=== PATIENT | female | born 1970 | race African-American/Black ===

== ENCOUNTER 2018-03-23 19:58 | Emergency (ER) | payer OTHER, SELFPAY ==
[2018-03-23] MEDS ORDERED: Lidocaine 1% w/Epinephrine 1:100K 20 ML VIAL ONE (21:39)
--- NOTE | 2018-03-23 22:17 | RAD ---
RIGHT TIBIA AND FIBULA TWO VIEW 03/23/18 HISTORY: Trauma. COMPARISON: None. FINDINGS: No acute displaced fracture or malalignment. No radiopaque foreign object is appreciated. IMPRESSION: No acute fracture or malalignment. POS: HOME
[2018-03-23] MEDS ORDERED: Sulfameth/Trimethoprim DS 800-160mg TAB ONE (22:38)
== END 2018-03-23 22:44 | disposition home or self-care (01) ==
LOC: ERS 19:58
DX: S81.811A Laceration without foreign body, right lower leg, initial encounter (principal); W25.XXXA Contact with sharp glass, initial encounter
CPT/HCPCS: J2001

== ENCOUNTER 2019-01-16 11:32 | Emergency (ER) | payer SELFPAY | END 2019-01-16 12:16 | disposition home or self-care (01) | LOC: ERS 11:32 | DX: B37.2 Candidiasis of skin and nail (principal) | CPT/HCPCS: 99282 ==

== ENCOUNTER 2019-01-29 10:57 | Emergency (ER) | payer SELFPAY ==
[2019-01-29] MEDS ORDERED: diphenhydrAMINE 25 MG CAP ONE (12:04)
== END 2019-01-29 12:06 | disposition home or self-care (01) ==
LOC: ERS 10:57
DX: T63.481A Toxic effect of venom of other arthropod, accidental (unintentional), initial encounter (principal); F32.9 Major depressive disorder, single episode, unspecified
CPT/HCPCS: 99282; Q0163

== ENCOUNTER 2019-07-31 15:27 | Emergency (ER) | payer SELFPAY ==
[2019-07-31 16:10] LABS: Bilirubin Negative (Negative); Blood, Urine 2+ (Negative); Clarity Clear (Clear); Glucose, Urine (Dipstick) Normal (Negative); Leukocyte 500 Leu/uL (Negative); Nitrite Negative (Negative); Protein, Urine (Dipstick) 30 mg/dL (Neg-Trace); RBC/HPF 0-3 HPF (0-3); Urobilinogen Normal mg/dL (Less than 2)
[2019-07-31 16:11] LABS: Pregnancy Test - Urine (BHCG) Negative (Negative); Pregu Control Background? CLEAR/WHITE (CLR/WHITE); Pregu Control Bar Appear? YES (CONTROL BAR); Specific Gravity 1.027 (1.002-1.036)
[2019-07-31 16:17] LABS: Bacteria/HPF 1+ HPF (None Seen)
[2019-07-31 16:19] LABS: Mucous/LPF 1+ LPF (<2+)
[2019-08-02 22:36] LABS: Chlamydia by PCR Not Detected (NotDetected); GC by PCR Not Detected (NotDetected)
== END 2019-07-31 18:36 | disposition home or self-care (01) ==
LOC: ERS 15:27
DX: N76.0 Acute vaginitis (principal); B37.3 Candidiasis of vulva and vagina; F32.9 Major depressive disorder, single episode, unspecified
CPT/HCPCS: 81003; 81015; 81025; 87480; 87491; 87510; 87591; 87660; 99283

== ENCOUNTER 2022-08-05 16:09 | Emergency (ER) | payer SELFPAY | END 2022-08-05 17:30 | disposition home or self-care (01) | LOC: ERS 16:09 | DX: S13.4XXA Sprain of ligaments of cervical spine, initial encounter (principal); V89.2XXA Person injured in unspecified motor-vehicle accident, traffic, initial encounter | CPT/HCPCS: 72125 ==

== ENCOUNTER 2022-09-09 10:46 | Emergency (ER) | payer SELFPAY ==
[2022-09-09] MEDS ORDERED: Acetaminophen 500 MG TAB ONE (11:52)
[2022-09-09 11:53] LABS: #Basophils 0.1 thou/uL (0.0-0.2); #Eosinphils 0.2 thou/uL (0.0-0.7); #Lymphocytes 1.9 thou/uL (1.20-3.40); #Monocytes 0.2 thou/uL (0.11-0.59); %Basophils 2.5 % (0.0-1.0); %Eosinophils 4.6 % (0.0-10.0); %Lymphocytes 42.2 % (21.0-51.0); %Monocytes 4.5 % (0.0-10.0); %Neutrophils 46.1 % (42.0-75.0); Hemoglobin 12.9 g/dL (12.0-16.0); Mean Corpuscular HGB CONC 32.5 g/dL (32.0-36.0); Mean Corpuscular Volume 98.6 fl (78.0-98.0); Mean Platelet Volume 8.4 fL (7.4-10.4); Platelet Count 236 10x3/uL (130-400); RBC Distribution Width 11.5 % (11.5-14.5); Red Blood Cell (RBC) Count 4.04 mill/uL (4.20-5.40); White Blood Cell (WBC) Count 4.4 10x3/uL (4.8-10.8)
[2022-09-09 12:12] LABS: ALT (SGPT) 8 U/L (8-55); AST (SGOT) 16 U/L (5-34); Albumin 4.2 g/dL (3.5-5.0); Alkaline Phosphatase 65 U/L (40-110); Anion Gap 11 mmol/L (10-20); BUN (Urea Nitrogen) 14 mg/dL (9.8-20.1); Bilirubin, Total 0.4 mg/dL (0.2-1.2); Calc. Creatinine Clearance 0 mL/min (70-130); Calcium 9.2 mg/dL (7.8-10.44); Carbon Dioxide 27 mmol/L (22-29); Chloride 106 mmol/L (98-107); Estimated GFR 93; Globulin 3.2 g/dL (2.4-3.5); Glucose 77 mg/dL (70-105); Potassium 3.9 mmol/L (3.5-5.1); Protein, Total 7.4 g/dL (6.0-8.3); Sodium 140 mmol/L (136-145)
[2022-09-09 12:29] LABS: Bilirubin Negative (Negative); Blood, Urine Negative (Negative); Clarity Clear (Clear); Glucose, Urine (Dipstick) Normal (Negative); Ketone, Urine Negative (Negative); Leukocyte Negative Leu/uL (Negative); Nitrite Negative (Negative); Protein, Urine (Dipstick) Negative (Neg-Trace); Urobilinogen Normal mg/dL (Less than 2); pH, Urine 6.5 (5.0-9.0)
[2022-09-09 12:36] LABS: Pregnancy Test - Urine (BHCG) Negative (Negative)
[2022-09-09 12:37] LABS: Pregu Control Background? CLEAR/WHITE (CLR/WHITE); Pregu Control Bar Appear? YES (CONTROL BAR)
[2022-09-09 12:50] LABS: SARS-CoV-2 NAA Rapid Test Not Detected (NotDetected)
[2022-09-09] MEDS ORDERED: Lidocaine 1% PF 5 ML VIAL ONE (14:12)
[2022-09-09] MEDS ORDERED: cefTRIAXone\\ROCEPHIN 500 MG VIAL ONE (14:12)
== END 2022-09-09 14:55 | disposition home or self-care (01) ==
LOC: ERS 10:46
DX: R10.9 Unspecified abdominal pain (principal); Z20.822 Contact with and (suspected) exposure to COVID-19; Z20.2 Contact with and (suspected) exposure to infections with a predominantly sexual mode of transmission
CPT/HCPCS: 36415; 80053; 81003; 81025; 85025; 96372; 99284; J0696

== ENCOUNTER 2025-08-12 17:14 | Emergency (ER) | payer OTHER | END 2025-08-12 18:19 | disposition home or self-care (01) | LOC: ERS 17:14 | DX: M54.12 Radiculopathy, cervical region (principal) | CPT/HCPCS: 99283 ==